=== PATIENT | male | born 1970 | race Caucasian/White ===

== ENCOUNTER 2025-10-13 18:03 | Emergency (ER) | payer SELFPAY ==
[~2025-10-13] VITALS: Ht 162.6 cm; Wt 56.0 kg
[2025-10-13 18:07] VITALS: O2SAT 99
[2025-10-13] MEDS ORDERED: NAPR-681 MT (22:07)
[2025-10-13] MEDS ORDERED: LIDO-53 TP (22:07)
[2025-10-13] MEDS: KETOROLAC 30MG/ML VIAL IM ONE (22:19)
[2025-10-13] MEDS: BACITRACIN ZINC OINT UDPKT TOP ONE (22:19)
[2025-10-13 22:23] VITALS: BP 132/80; PULSE 80; RESP 16; TEMP 36.7; O2SAT 100
== END 2025-10-13 22:42 | disposition home or self-care (01) ==
LOC: ER 18:03
DX: M25.561 Pain in right knee (principal); I10 Essential (primary) hypertension
CPT/HCPCS: 99284; 73070; 73130; 73560; 96372; J1885; A6449; A4565